=== PATIENT | female | born 1985 | race Two or more races ===

== ENCOUNTER 2021-04-01 09:38 | Inpatient (IN) | payer SELFPAY ==
[~2021-04-01] VITALS: Ht 172.7 cm; Wt 140.9 kg
[2021-04-01] MEDS ORDERED: IV RINGERS,LACTATED 1000ML 1,000 ML IV ONE ×2 (10:00→12:00)
[2021-04-01] MEDS ORDERED: KETOROLAC 15 MG/ML VIAL. IVP ONE (10:00)
[2021-04-01] MEDS ORDERED: ONDANSETRON PF 4 MG/2 ML VIAL. IVP ONE (10:00)
[2021-04-01 10:21] LABS: BILIRUBIN,URINE NEGATIVE (NEG); CLARITY,URINE CLOUDY; COLOR,URINE YELLOW; NITRITE,URINE NEGATIVE (NEG); PROTEIN,URINE >=300 mg/dL (NEG-TRACE); UROBILINOGEN,URINE 0.2 mg/dL (0.2 mg/dL)
[2021-04-01 10:25] LABS: BASO % 0 % (0-3); EOS % 0 % (0-3); HEMATOCRIT 33.9 % (36.0-47.0); HEMOGLOBIN 10.9 g/dL (12.0-15.5); LYMPH # 1.3 x10^3/uL (1.0-4.8); LYMPH % 11 % (24-48); MEAN CORPUSCULAR HEMOGLOBIN 25 pg (25-35); MEAN CORPUSCULAR HGB CONC 32 g/dL (31-37); MEAN CORPUSCULAR VOLUME 77 fL (79-100); MONO # 0.4 x10^3/uL (0.0-1.1); MONO % 4 % (0-9); NEUT # 10.4 x10^3/uL (1.8-7.7); NEUT % 85 % (31-73); PLATELET COUNT 549 x10^3/uL (140-400); RED BLOOD COUNT 4.44 x10^6/uL (3.50-5.40); RED CELL DISTRIBUTION WIDTH 15.4 % (11.5-14.5); WHITE BLOOD COUNT 12.2 x10^3/uL (4.0-11.0)
[2021-04-01 10:34] LABS: CALCIUM 8.4 mg/dL (8.5-10.1); CREATININE 0.6 mg/dL (0.6-1.0); GFR 113.8; POTASSIUM 3.9 mmol/L (3.5-5.1)
[2021-04-01 10:35] LABS: BACTERIA,URINE FEW /HPF (0-FEW)
[2021-04-01 10:40] LABS: ALBUMIN 3.4 g/dL (3.4-5.0); ALBUMIN/GLOBULIN RATIO 0.7 (1.0-1.7); TOTAL BILIRUBIN 0.2 mg/dL (0.2-1.0); TOTAL PROTEIN 8.3 g/dL (6.4-8.2)
--- NOTE | 2021-04-01 11:06 | PHYS DOC ---
Past Medical History Past Surgical History: (RAQUEL ELIZABETH) Smoking Status: Never Smoker Alcohol Use: None (RAQUEL ELIZABETH) General Adult EDM: Chief Complaint: ABDOMINAL PAIN HPI: HPI: Patient is a 36 year old female who presents with epigastric abdominal pain and vomiting that began yesterday. Patient states she had sudden onset of epigastric pain last night that she rates 10/10 nonradiating. This pain was so intense that she vomited. She describes the vomitus as green in color and thin. She denies any exacerbating or remitting factors. Patient's last menstrual period was 4 (RAQUEL ELIZABETH) Review of Systems: Review of Systems: Constitutional: Denies fever, chills or generalized weakness Eyes: Denies change in visual acuity, visual field deficits or discharge HENT: Denies ear pain, nasal congestion or sore throat Respiratory: Denies cough or shortness of breath Cardiovascular: Denies chest pain, palpitations or edema GI: See HPI : Denies dysuria or hematuria Musculoskeletal: Denies back pain or joint pain Integument: Denies rash or other skin lesion Neurologic: Denies headache, focal weakness or sensory changes (RAQUEL ELIZABETH) Heart Score: C/O Chest Pain: No (RAQUEL ELIZABETH) Current Medications: Current Medications Medications (Trade) Dose Ordered Sig/Live Start Time Stop Time Status Last Admin Dose Admin Ketorolac Tromethamine (Toradol 15mg Vial) 15 mg 1X ONCE 04/01/21 10:00 04/01/21 10:01 DC 04/01/21 10:15 15 MG Ondansetron HCl (Zofran) 4 mg 1X ONCE 04/01/21 10:00 04/01/21 10:01 DC 04/01/21 10:15 4 MG Ringer's Solution 1,000 ml @ 1,000 mls/hr 1X ONCE 04/01/21 10:00 04/01/21 10:59 DC 04/01/21 10:16 1,000 MLS/HR (RAQUEL ELIZABETH) Allergies: Allergies: Allergies Coded Allergies Type Severity Reaction Last Updated Verified No Known Drug Allergies 04/01/21 No (RAQUEL ELIZABETH) Physical Exam: PE: Constitutional: Morbidly obese, no acute distress, non-toxic appearance. HENT: Normocephalic, atraumatic, bilateral external ears normal, nose normal. Eyes: EOMI, conjunctiva normal, no discharge. Neck: Normal range of motion, no stridor. Cardiovascular: Heart rate regular rhythm, no murmur. Lungs & Thorax: Bilateral breath sounds clear to auscultation. Abdomen: Bowel sounds normal, soft, epigastric tenderness, no masses, no pulsatile masses. Skin: Warm, dry, no erythema, no rash. Back: No tenderness, no CVA tenderness. Neurologic: Alert and oriented x4, steady and symmetrical upright gait, no focal deficits noted. (RAQUEL ELIZABETH) Current Patient Data: Labs: Laboratory Tests Test 04/01/21 10:00 04/01/21 10:06 04/01/21 10:10 Urine Collection Type Unknown Urine Color Yellow Urine Clarity Cloudy Urine pH 6.0 (<5.0-8.0) Urine Specific Dav[place] >=1.030 (1.000-1.030) Urine Protein >=300 mg/dL (NEG-TRACE) Urine Glucose (UA) 100 mg/dL (NEG) Urine Ketones (Stick) Negative mg/dL (NEG) Urine Blood Moderate (NEG) Urine Nitrite Negative (NEG) Urine Bilirubin Negative (NEG) Urine Urobilinogen Dipstick 0.2 mg/dL (0.2 mg/dL) Urine Leukocyte Esterase Negative (NEG) Urine RBC 11-20 /HPF (0-2) Urine WBC 1-4 /HPF (0-4) Urine Squamous Epithelial Cells Mod /LPF Urine Bacteria Few /HPF (0-FEW) Urine Mucus Mod /LPF POC Urine HCG, Qualitative Hcg negative (Negative) White Blood Count 12.2 x10^3/uL (4.0-11.0) H Red Blood Count 4.44 x10^6/uL (3.50-5.40) Hemoglobin 10.9 g/dL (12.0-15.5) L Hematocrit 33.9 % (36.0-47.0) L Mean Corpuscular Volume 77 fL (79-100) L Mean Corpuscular Hemoglobin 25 pg (25-35) Mean Corpuscular Hemoglobin Concent 32 g/dL (31-37) Red Cell Distribution Width 15.4 % (11.5-14.5) H Platelet Count 549 x10^3/uL (140-400) H Neutrophils (%) (Auto) 85 % (31-73) H Lymphocytes (%) (Auto) 11 % (24-48) L Monocytes (%) (Auto) 4 % (0-9) Eosinophils (%) (Auto) 0 % (0-3) Basophils (%) (Auto) 0 % (0-3) Neutrophils # (Auto) 10.4 x10^3/uL (1.8-7.7) H Lymphocytes # (Auto) 1.3 x10^3/uL (1.0-4.8) Monocytes # (Auto) 0.4 x10^3/uL (0.0-1.1) Eosinophils # (Auto) 0.0 x10^3/uL (0.0-0.7) Basophils # (Auto) 0.0 x10^3/uL (0.0-0.2) Sodium Level 135 mmol/L (136-145) L Potassium Level 3.9 mmol/L (3.5-5.1) Chloride Level 99 mmol/L (98-107) Carbon Dioxide Level 23 mmol/L (21-32) Anion Gap 13 (6-14) Blood Urea Nitrogen 10 mg/dL (7-20) Creatinine 0.6 mg/dL (0.6-1.0) Estimated GFR (Cockcroft-Gault) 113.8 BUN/Creatinine Ratio 17 (6-20) Glucose Level 200 mg/dL (70-99) H Calcium Level 8.4 mg/dL (8.5-10.1) L Total Bilirubin 0.2 mg/dL (0.2-1.0) Aspartate Amino Transferase (AST) 6 U/L (15-37) L Alanine Aminotransferase (ALT) 22 U/L (14-59) Alkaline Phosphatase 97 U/L (46-116) Troponin I High Sensitivity 6 ng/L (4-50) Total Protein 8.3 g/dL (6.4-8.2) H Albumin 3.4 g/dL (3.4-5.0) Albumin/Globulin Ratio 0.7 (1.0-1.7) L Lipase 39 U/L (73-393) L Laboratory Tests 04/01/21 10:10 Laboratory Tests 04/01/21 10:10 Vital Signs: Vital Signs Date Time Temp Pulse Resp B/P (MAP) Pulse Ox O2 Delivery O2 Flow Rate FiO2 04/01/21 09:55 98.3 103 20 205/108 (140) 98 Room Air 98.3 (RAQUEL ELIZABETH) EKG: EKG: EKG Interpreted by Dr. Nance at 1008: Regular rate and rhythm 99 bpm with no ectopic beats. Inverted T waves, Q waves in lead III. QT 360 ms/QTc 468 ms. No STEMI. (RAQUEL ELIZABETH) Radiology/Procedures: Radiology/Procedures: PROCEDURE: CT ABDOMEN PELVIS WO CONTRAST CT ABDOMEN+PELVIS WO History: Hematuria, abdominal pain. Comparison: None. Technique: CT abdomen pelvis without contrast. Findings: Dependent changes in the right lung base. Diffuse hypodensity liver. Distended gallbladder with suggestion of noncalcified 2.3 cm stone at the neck. The pancreas, spleen, and adrenal glands are u nremarkable. There is no nephrolithiasis or hydronephrosis. The bladder, uterus and adnexa are within normal limits. The stomach is decompressed. Small bowel is unremarkable. Normal appendix. Unremarkable colon. No intra-abdominal free air or free fluid. Unenhanced vasculature is unremarkable. There is no adenopathy. Moderate fat-containing umbilical hernia. No acute osseous abnormality. Impression: 1. Distended gallbladder with suggestion of 2.3 cm stone at the gallbladder neck. Correlate for right upper quadrant symptoms. 2. No nephrolithiasis or hydronephrosis. 3. Hepatic steatosis. 4. Moderate fat-containing umbilical hernia. ------ Exposure: One or more of the following individualized dose reduction techniques were utilized for this examination: 1. Automated exposure control 2. Adjustment of the mA and/or kV according to patient size 3. Use of iterative reconstruction technique. Electronically signed by: Maikol Bolton MD (04/01/2021 11:26 AM) [id number] (RAQUEL ELIZABETH) Course & Med Decision Making: Course & Med Decision Making Pertinent Labs and Imaging studies reviewed. (See chart for details) Patient is an obese 36-year-old female who presents with epigastric pain leading to nausea and vomiting. Work-up today will include labs, EKG, urinalysis. Toradol provided for pain control. Work-up reveals elevated white count and hematuria. CT abdomen pelvis plain was ordered to evaluate for possible kidney stone. CT imaging reveals 2.3 cm gallstone with distention. Dr. Rocha (general surgery) paged to discuss surgical removal of gallbladder. Dr. Rocha requests admission and initiation of IV Zosyn, with expected cholecystectomy tomorrow. Dr. Bocanegra (hospitalist) gladly accepts patient for admission. (RAQUEL ELIZABETH) Dragon Disclaimer: Dragon Disclaimer: This electronic medical record was generated, in whole or in part, using a voice recognition dictation system. (RAQUEL ELIZABETH) Departure Departure Impression: Primary Impression: Cholelithiasis with cholecystitis Qualified Codes: K80.00 - Calculus of gallbladder with acute cholecystitis without obstruction Additional Impression: Biliary colic Disposition: ADMITTED INPATIENT Admitting Physician: PEDRO Avelar) (RAQUEL ELIZABETH) Condition: GUARDED Referrals: NO PCP (PCP) Attending Signature Attending Signature I have reviewed the PA/SOLE SPLITTER's note and plan of care. I was available for consultation as needed during the patient's visit in the emergency department. I agree with the clinical impression, plan, and disposition. (RANJIT NANCE DO) RAQUEL ELIZABETH Apr 01, 2021 11:06 RANJIT NANCE DO Apr 02, 2021 09:01
--- NOTE | 2021-04-01 11:28 | RAD ---
CT ABDOMEN+PELVIS WO History: Hematuria, abdominal pain. Comparison: None. Technique: CT abdomen pelvis without contrast. Findings: Dependent changes in the right lung base. Diffuse hypodensity liver. Distended gallbladder with suggestion of noncalcified 2.3 cm stone at the neck. The pancreas, spleen, and adrenal glands are unremarkable. There is no nephrolithiasis or hydro nephrosis. The bladder, uterus and adnexa are within normal limits. The stomach is decompressed. Small bowel is unremarkable. Normal appendix. Unremarkable colon. No int ra-abdominal free air or free fluid. Unenhanced vasculature is unremarkable. There is no adenopathy. Moderate fat-containing umbilical hernia. No acute osseous abnormality. Impression: 1. Distended gallbladder with suggestion of 2.3 cm stone at the gallbladder neck. Correlate for righ t upper quadrant symptoms. 2. No nephrolithiasis or hydronephrosis. 3. Hepatic steatosis. 4. Moderate fat-containing umbilical hernia. ------ Exposure: One or more of the following individualized dose reduction techniques were utilized for thi s examination: 1. Automated exposure control 2. Adjustment of the mA and/or kV according to patient size 3. Use of iterative reconstruction technique. Electronically signed by: Maikol Bolton MD (04/01/2021 11:26 AM) [id number]
[2021-04-01] MEDS ORDERED: MORPHINE SULFATE 2 MG/ML INJ. IVP ONE (12:00)
[2021-04-01] MEDS ORDERED: MORPHINE SULFATE 2 MG/ML INJ. IVP PRN (12:15)
[2021-04-01] MEDS ORDERED: LORazepam 0.5 MG TABLET PO PRN (13:45)
[2021-04-01] MEDS ORDERED: SENNOSIDES 8.6 MG TABLET PO PRN (13:45)
[2021-04-01] MEDS ORDERED: diphenhydrAMINE 50 MG/ML VIAL IVP PRN (13:45)
[2021-04-01] MEDS ORDERED: PIP/TAZO PER PHARMACY MC PRN (13:45)
[2021-04-01] MEDS ORDERED: DOCUSATE SODIUM 100 MG CAPSULE. PO PRN (13:45)
[2021-04-01] MEDS ORDERED: DICYCLOMINE 20 MG/2 ML VIAL. IM PRN (13:45)
[2021-04-01] MEDS ORDERED: DEXTROSE 50% 25 GM / 50ML DISP.SYRIN. IV PRN ×2 (13:45→16:00)
[2021-04-01] MEDS ORDERED: PROCHLORPERAZINE 10 MG/2 ML VIAL. IV PRN (13:45)
[2021-04-01] MEDS ORDERED: diphenhydrAMINE HCL 25 MG CAPSULE PO PRN ×2 (13:45)
[2021-04-01] MEDS ORDERED: ZOLPIDEM 5 MG TABLET. PO PRN (13:45)
[2021-04-01] MEDS ORDERED: ACETAMINOPHEN 325 MG TABLET. PO PRN (13:45)
[2021-04-01] MEDS: ONDANSETRON PF 4 MG/2 ML VIAL. IVP PRN (13:51)
[2021-04-01] MEDS: MORPHINE SULFATE 2 MG/ML INJ. IVP PRN ×2 (13:51→16:54)
[2021-04-01] MEDS: IV NORMAL SALINE 1000ML BAG 1,000 ML IV SCH ×2 (13:56→23:45)
--- NOTE | 2021-04-01 13:56 | RAD ---
EXAM: ULTRASOUND ABDOMEN LIMITED CLINICAL HISTORY: cholelithiasis COMPARISON: None available. TECHNIQUE: Limited ultrasound examination of the right upper quadrant of the abdomen was performed. FINDINGS: The pancreas is mostly obscured by overlying bowel gas.. Liver: 20.7 cm in length. Increased hepatic echogenicity relative to the right kidney consistent wi th hepatic steatosis.. There are no focal liver lesions. Flow seen within the portal veins. Biliary: Cholelithiasis, with stone in the gallbladder neck. Distended gallbladder measures 11 cm in length. Gallbladder wall thickening measuring up to 7 mm. Sonographic Orourke's sign is reported as present. Common bile duct is obscured. Right Kidney: 14.8 cm in bipolar length. Normal renal cortical echotexture and thickness. No focal re nal lesion, shadowing renal calculus or hydronephrosis. Visualized portions of the abdominal aorta and inferior vena cava are unremarkable. There is no free fluid in the subhepatic space. IMPRESSION: 1. Gallbladder hydrops with cholelithiasis and gallbladder wall thickening. Sonographic Orourke's sign is reported as present. Findings are consistent with acute cholecystitis. 2. Common bile duct is obscured. 3. Hepatomegaly and hepatic steatosis. Electronically signed by: Steve Rosas MD (04/01/2021 1:54 PM) [id number]
[2021-04-01 14:45] VITALS: BP 183/95
--- NOTE | 2021-04-01 15:54 | PDOC1 ---
History and Physical Date of Service: DOS: DATE: 04/01/21 TIME: 15:49 Chief Complaint: Chief Complain: Abdominal pain History of Present Illness: HPI: 36-year-old female with morbid obesity who presents with epigastric abdominal pain and nausea vomiting that started yesterday. Patient has never had pain like this before. It was sudden in onset and 10 out of 10 that was nonradiating. Vomitus was bilious in nature. Denies any alleviating or exacerbating factors. Denies fevers, chest pain, diarrhea, dysuria, hematuria or constipation. Past Medical/Surgical History: PMH/PSH: Morbid obesity, in the past Allergies: Allergies: Coded Allergies: No Known Drug Allergies (Unverified , 04/01/21) Family History: Family History: Reviewed with no relevant findings in the chart Social History: Social History: Denies alcohol, tobacco or drug abuse. Current Medications: Current Medications Current Medications Ringer's Solution 1,000 ml @ 1,000 mls/hr 1X ONCE IV Last administered on 04/01/21at 10:16; Start 04/01/21 at 10:00; Stop 04/01/21 at 10:59; Status DC Ondansetron HCl (Zofran) 4 mg 1X ONCE IVP Last administered on 04/01/21at 10:15; Start 04/01/21 at 10:00; Stop 04/01/21 at 10:01; Status DC Ketorolac Tromethamine (Toradol 15mg Vial) 15 mg 1X ONCE IVP Last administered on 04/01/21at 10:15; Start 04/01/21 at 10:00; Stop 04/01/21 at 10:01; Status DC Morphine Sulfate (Morphine Sulfate) 2 mg 1X ONCE IVP Last administered on 04/01/21at 12:00; Start 04/01/21 at 12:00; Stop 04/01/21 at 12:01; Status DC Ringer's Solution 1,000 ml @ 1,000 mls/hr 1X ONCE IV Last administered on 04/01/21at 12:00; Start 04/01/21 at 12:00; Stop 04/01/21 at 12:59; Status DC Morphine Sulfate (Morphine Sulfate) 2 mg PRN Q2HR PRN IVP PAIN; Start 04/01/21 at 12:15; Stop 04/02/21 at 12:14 Dicyclomine HCl (Bentyl) 10 mg PRN QID PRN IM ABDOMINAL CRAMPS Last adm inistered on 04/01/21at 14:45; Start 04/01/21 at 13:45 Sennosides (Senna) 17.2 mg PRN BID PRN PO CONSTIPATION; Start 04/01/21 at 13:45 Docusate Sodium (Colace) 100 mg PRN DAILY PRN PO HARD STOOLS; Start 04/01/21 at 13:45 Ondansetron HCl (Zofran) 4 mg PRN Q6HRS PRN IVP NAUSEA/VOMITING, 1st CHOICE Last administered on 04/01/21at 13:51; Start 04/01/21 at 13:45 Dextrose (Dextrose 50%-Water Syringe) 12.5 gm PRN Q15MIN PRN IV SEE COMMENTS; Start 04/01/21 at 13:45 Acetaminophen (Tylenol) 650 mg PRN Q4HRS PRN PO TEMP OVER 100.4F OR MILD PAIN; Start 04/01/21 at 13:45 Lorazepam (Ativan) 0.5 mg PRN Q6HRS PRN PO ANXIETY / AGITATION; Start 04/01/21 at 13:45 Lorazepam (Ativan Inj) 0.25 mg PRN Q4HRS PRN IV ANXIETY / AGITATION; Start 04/01/21 at 13:45 Prochlorperazine Edisylate (Compazine) 10 mg PRN Q6HRS PRN IV NAUSEA/VOMITING, 2nd CHOICE; Start 04/01/21 at 13:45 Diphenhydramine HCl (Benadryl) 25 mg PRN Q6HRS PRN IVP ITCHING; Start 04/01/21 at 13:45 Diphenhydramine HCl (Benadryl) 25 mg PRN Q6HRS PRN PO ITCHING; Start 04/01/21 at 13:45 Diphenhydramine HCl (Benadryl) 25 mg PRN QHS PRN PO INSOMNIA, 1st CHOICE; Start 04/01/21 at 13:45 Zolpidem Tartrate (Ambien) 2.5 mg PRN QHS PRN PO INSOMNIA, 2nd CHOICE; Start 04/01/21 at 13:45 Sodium Chloride 1,000 ml @ 100 mls/hr Q10H IV Last administered on 04/01/21at 13:56; Start 04/01/21 at 13:45 Enoxaparin Sodium (Lovenox 40mg Syringe) 40 mg Q12H SQ ; Start 04/01/21 at 21:00 Morphine Sulfate (Morphine Sulfate) 1 mg PRN Q1HR PRN IV PAIN; Start 04/01/21 at 13:45 Morphine Sulfate (Morphine Sulfate) 2 mg PRN Q2HR PRN IVP SEVERE PAIN 7-10 Last administered on 04/01/21at 13:51; Start 04/01/21 at 13:45; Stop 04/02/21 at 13:44 Piperacillin Sod/ Tazobactam Sod (Zosyn Per Pharmacy) 1 each PRN DAILY PRN MC SEE COMMENTS; Start 04/01/21 at 13:45 Piperacillin Sod/ Tazobactam Sod 3.375 gm/Sodium Chloride 50 ml @ 100 mls/hr Q6HRS IV ; Start 04/01/21 at 18:00 Heparin Sodium (Porcine) 1000 unit/Sodium Chloride 1,001 ml @ 1,001 mls/hr 1X ONCE IRR ; Start 04/02/21 at 06:00; Stop 04/02/21 at 06:59 Fentanyl Citrate (Fentanyl 2ml Vial) 25 mcg PRN Q5MIN PRN IVP MILD PAIN 1-3; Start 04/02/21 at 06:00; Stop 04/03/21 at 05:59 Fentanyl Citrate (Fentanyl 2ml Vial) 50 mcg PRN Q5MIN PRN IVP MODERATE PAIN 4- 6; Start 04/02/21 at 06:00; Stop 04/03/21 at 05:59 Morphine Sulfate (Morphine Sulfate) 1 mg PRN Q10MIN PRN IVP SEVERE PAIN 7-10; Start 04/02/21 at 06:00; Stop 04/03/21 at 05:59 Ringer's Solution 1,000 ml @ 30 mls/hr Q24H IV ; Start 04/02/21 at 06:00; Stop 04/02/21 at 17:59 Hydromorphone HCl (Dilaudid) 0.5 mg PRN Q10MIN PRN IVP SEVERE PAIN 7-10, 2nd CHOICE; Start 04/02/21 at 06:00; Stop 04/03/21 at 05:59 Prochlorperazine Edisylate (Compazine) 5 mg PACU PRN PRN IVP NAUSEA, MRX1; Start 04/02/21 at 06:00; Stop 04/03/21 at 05:59 ROS: Review of Systems Review of System REVIEW OF SYSTEMS: GENERAL: Denies weakness SKIN: No bruising, hair changes or rashes. EYES: No blurred, double or loss of vision. NOSE AND THROAT: No history of nosebleeds, hoarseness or sore throat. HEART: No history of palpitations, chest pain or shortness of breath on exertion. LUNGS: Denies cough, hemoptysis, wheezing or shortness of breath. GASTROINTESTINAL: Positive for abdominal pain GENITOURINARY: No history of frequency, urgency, hesitancy or nocturia. NEUROLOGIC: Denies history of numbness, tingling, or tremor. PSYCHIATRIC: No history of panic, anxiety or depression. ENDOCRINE: No history of heat or cold intolerance, polyuria or polydipsia. EXTREMITIES: Denies joint pain, pain on walking or stiffness. Physical Exam: Vital Signs: Vital Signs Date Time Temp Pulse Resp B/P (MAP) Pulse Ox O2 Delivery O2 Flow Rate FiO2 04/01/21 14:45 98.3 94 20 183/95 (124) 99 Room Air 98.3 Physcial Exam: General: Well developed, well nourished, no acute distress, well appearing, obese HEENT: Pupils equally round and reactive to light, EOMI, no discharge, normal conjunctiva Neck: Supple, no nuchal rigidity, no JVD, trachea midline, no tenderness Cardiac: RRR, no murmurs, no gallops, no rubs Chest/Lungs: CTAB, no wheeze, no rhonchi, no crackles Abdomen: soft, non-distended, no guarding, no peritoneal signs, epigastric and right upper quadrant tenderness Back: No tenderness Extremities: no edema, pulses intact, non-tender,capillary refill <3 sec bilateral upper and lower extremities, Neuro: Alert and oriented x 4, no focal deficits, normal speech Labs: Labs: Laboratory Tests Test 04/01/21 10:00 04/01/21 10:06 04/01/21 10:10 Urine Collection Type Unknown Urine Color Yellow Urine Clarity Cloudy Urine pH 6.0 (<5.0-8.0) Urine Specific [place] >=1.030 (1.000-1.030) Urine Protein >=300 mg/dL (NEG-TRACE) Urine Glucose (UA) 100 mg/dL (NEG) Urine Ketones (Stick) Negative mg/dL (NEG) Urine Blood Moderate (NEG) Urine Nitrite Negative (NEG) Urine Bilirubin Negative (NEG) Urine Urobilinogen Dipstick 0.2 mg/dL (0.2 mg/dL) Urine Leukocyte Esterase Negative (NEG) Urine RBC 11-20 /HPF (0-2) Urine WBC 1-4 /HPF (0-4) Urine Squamous Epithelial Cells Mod /LPF Urine Bacteria Few /HPF (0-FEW) Urine Mucus Mod /LPF Bedside Urine HCG, Qualitative Hcg negative (Negative) White Blood Count 12.2 x10^3/uL (4.0-11.0) Red Blood Count 4.44 x10^6/uL (3.50-5.40) Hemoglobin 10.9 g/dL (12.0-15.5) Hematocrit 33.9 % (36.0-47.0) Mean Corpuscular Volume 77 fL (79-100) Mean Corpuscular Hemoglobin 25 pg (25-35) Mean Corpuscular Hemoglobin Concent 32 g/dL (31-37) Red Cell Distribution Width 15.4 % (11.5-14.5) Platelet Count 549 x10^3/uL (140-400) Neutrophils (%) (Auto) 85 % (31-73) Lymphocytes (%) (Auto) 11 % (24-48) Monocytes (%) (Auto) 4 % (0-9) Eosinophils (%) (Auto) 0 % (0-3) Basophils (%) (Auto) 0 % (0-3) Neutrophils # (Auto) 10.4 x10^3/uL (1.8-7.7) Lymphocytes # (Auto) 1.3 x10^3/uL (1.0-4.8) Monocytes # (Auto) 0.4 x10^3/uL (0.0-1.1) Eosinophils # (Auto) 0.0 x10^3/uL (0.0-0.7) Basophils # (Auto) 0.0 x10^3/uL (0.0-0.2) Sodium Level 135 mmol/L (136-145) Potassium Level 3.9 mmol/L (3.5-5.1) Chloride Level 99 mmol/L (98-107) Carbon Dioxide Level 23 mmol/L (21-32) Anion Gap 13 (6-14) Blood Urea Nitrogen 10 mg/dL (7-20) Creatinine 0.6 mg/dL (0.6-1.0) Estimated GFR (Cockcroft-Gault) 113.8 BUN/Creatinine Ratio 17 (6-20) Glucose Level 200 mg/dL (70-99) Calcium Level 8.4 mg/dL (8.5-10.1) Total Bilirubin 0.2 mg/dL (0.2-1.0) Aspartate Amino Transf (AST/SGOT) 6 U/L (15-37) Alanine Aminotransferase (ALT/SGPT) 22 U/L (14-59) Alkaline Phosphatase 97 U/L (46-116) Troponin I High Sensitivity 6 ng/L (4-50) Total Protein 8.3 g/dL (6.4-8.2) Albumin 3.4 g/dL (3.4-5.0) Albumin/Globulin Ratio 0.7 (1.0-1.7) Lipase 39 U/L (73-393) Laboratory Tests Test 04/01/21 10:00 04/01/21 10:06 04/01/21 10:10 Urine Collection Type Unknown Urine Color Yellow Urine Clarity Cloudy Urine pH 6.0 (<5.0-8.0) Urine Specific [place] >=1.030 (1.000-1.030) Urine Protein >=300 mg/dL (NEG-TRACE) Urine Glucose (UA) 100 mg/dL (NEG) Urine Ketones (Stick) Negative mg/dL (NEG) Urine Blood Moderate (NEG) Urine Nitrite Negative (NEG) Urine Bilirubin Negative (NEG) Urine Urobilinogen Dipstick 0.2 mg/dL (0.2 mg/dL) Urine Leukocyte Esterase Negative (NEG) Urine RBC 11-20 /HPF (0-2) Urine WBC 1-4 /HPF (0-4) Urine Squamous Epithelial Cells Mod /LPF Urine Bacteria Few /HPF (0-FEW) Urine Mucus Mod /LPF Bedside Urine HCG, Qualitative Hcg negative (Negative) White Blood Count 12.2 x10^3/uL (4.0-11.0) Red Blood Count 4.44 x10^6/uL (3.50-5.40) Hemoglobin 10.9 g/dL (12.0-15.5) Hematocrit 33.9 % (36.0-47.0) Mean Corpuscular Volume 77 fL (79-100) Mean Corpuscular Hemoglobin 25 pg (25-35) Mean Corpuscular Hemoglobin Concent 32 g/dL (31-37) Red Cell Distribution Width 15.4 % (11.5-14.5) Platelet Count 549 x10^3/uL (140-400) Neutrophils (%) (Auto) 85 % (31-73) Lymphocytes (%) (Auto) 11 % (24-48) Monocytes (%) (Auto) 4 % (0-9) Eosinophils (%) (Auto) 0 % (0-3) Basophils (%) (Auto) 0 % (0-3) Neutrophils # (Auto) 10.4 x10^3/uL (1.8-7.7) Lymphocytes # (Auto) 1.3 x10^3/uL (1.0-4.8) Monocytes # (Auto) 0.4 x10^3/uL (0.0-1.1) Eosinophils # (Auto) 0.0 x10^3/uL (0.0-0.7) Basophils # (Auto) 0.0 x10^3/uL (0.0-0.2) Sodium Level 135 mmol/L (136-145) Potassium Level 3.9 mmol/L (3.5-5.1) Chloride Level 99 mmol/L (98-107) Carbon Dioxide Level 23 mmol/L (21-32) Anion Gap 13 (6-14) Blood Urea Nitrogen 10 mg/dL (7-20) Creatinine 0.6 mg/dL (0.6-1.0) Estimated GFR (Cockcroft-Gault) 113.8 BUN/Creatinine Ratio 17 (6-20) Glucose Level 200 mg/dL (70-99) Calcium Level 8.4 mg/dL (8.5-10.1) Total Bilirubin 0.2 mg/dL (0.2-1.0) Aspartate Amino Transf (AST/SGOT) 6 U/L (15-37) Alanine Aminotransferase (ALT/SGPT) 22 U/L (14-59) Alkaline Phosphatase 97 U/L (46-116) Troponin I High Sensitivity 6 ng/L (4-50) Total Protein 8.3 g/dL (6.4-8.2) Albumin 3.4 g/dL (3.4-5.0) Albumin/Globulin Ratio 0.7 (1.0-1.7) Lipase 39 U/L (73-393) Images: Images PROCEDURE: CT ABDOMEN PELVIS WO CONTRAST CT ABDOMEN+PELVIS WO History: Hematuria, abdominal pain. Comparison: None. Technique: CT abdomen pelvis without contrast. Findings: Dependent changes in the right lung base. Diffuse hypodensity liver. Distended gallbladder with suggestion of noncalcified 2.3 cm stone at the neck. The pancreas, spleen, and adrenal glands are unremarkable. There is no nephrolithiasis or hydronephrosis. The bladder, uterus and adnexa are within normal limits. The stomach is decompressed. Small bowel is unremarkable. Normal appendix. Unre markable colon. No intra-abdominal free air or free fluid. Unenhanced vasculature is unremarkable. There is no adenopathy. Moderate fat-containing umbilical hernia. No acute osseous abnormality. Impression: 1. Distended gallbladder with suggestion of 2.3 cm stone at the gallbladder neck. Correlate for right upper quadrant symptoms. 2. No nephrolithiasis or hydronephrosis. 3. Hepatic steatosis. 4. Moderate fat-containing umbilical hernia. PROCEDURE: ABDOMEN LTD EXAM: ULTRASOUND ABDOMEN LIMITED CLINICAL HISTORY: cholelithiasis COMPARISON: None available. TECHNIQUE: Limited ultrasound examination of the right upper quadrant of the abdomen was performed. FINDINGS: The pancreas is mostly obscured by overlying bowel gas.. Liver: 20.7 cm in length. Increased hepatic echogenicity relative to the right kidney consistent with hepatic steatosis.. There are no focal liver lesions. Flow seen within the portal veins. Biliary: Cholelithiasis, with stone in the gallbladder neck. Distended gallbladder measures 11 cm in length. Gallbladder wall thickening measuring up to 7 mm. Sonographic Orourke's sign is reported as present. Common bile duct is obscured. Right Kidney: 14.8 cm in bipolar length. Normal renal cortical echotexture and thickness. No focal renal lesion, shadowing renal calculus or hydronephrosis. Visualized portions of the abdominal aorta and inferior vena cava are unremarkable. There is no free fluid in the subhepatic space. IMPRESSION: 1. Gallbladder hydrops with cholelithiasis and gallbladder wall thickening. Sonographic Orourke's sign is reported as present. Findings are consistent with acute cholecystitis. 2. Common bile duct is obscured. 3. Hepatomegaly and hepatic steatosis. Assessment/Plan Assessment/Plan Acute abdominal pain secondary to acute cholecystitis Microcytic anemia likely due to KEYSHA Mild hyponatremia likely related to volume depletion Hyperglycemia without a history of diabetes Admit to hospitalist service for further management General surgery consult Continue IV fluids Keep n.p.o. PO and IV pain control R ISS and Accu-Cheks Pending hemoglobin A1c Lovenox and SCD for DVT prophylaxis N.p.o. for now, ADA diet after surgery CODE STATUS full Discussed with RN and SW Disposition inpatient management as above DPOA: Justifications for Admission Other Justification Acute cholecystitis KYLAH TEIXEIRA MD Apr 01, 2021 15:54
[2021-04-01] MEDS: PIPERACILLIN/TAZOBACTAM 3.375 GM in IV NORMAL SALINE 50ML 50 ML IV SCH (16:53)
[2021-04-01] MEDS: INSULIN LISPRO 300 UNITS/3 ML VIAL. SQ SCH (17:00)
[2021-04-01] MEDS ORDERED: fentaNYL PF VIAL 100 MCG/2 ML VIAL IVP PRN (17:45)
[2021-04-01 19:35] VITALS: BP 200/106
[2021-04-01] MEDS: ENOXAPARIN 40 MG/0.4 ML SYRINGE. SQ SCH (23:01)
[2021-04-01 23:20] VITALS: BP 172/83
[2021-04-02] VITALS (11 sets, daily range): BP systolic 158–188; BP diastolic 88–113
[2021-04-02] MEDS: PIPERACILLIN/TAZOBACTAM 3.375 GM in IV NORMAL SALINE 50ML 50 ML IV SCH ×4 (00:33→19:19)
[2021-04-02] MEDS ORDERED: HEPARIN 1,000 UNIT in IV NORMAL SALINE 1,000 ML for SURG PERIOP IRR ONE (06:00)
[2021-04-02] MEDS ORDERED: IV RINGERS,LACTATED 1000ML 1,000 ML IV SCH (06:00)
[2021-04-02] MEDS ORDERED: HYDROmorphone 2 MG/ML INJ. IVP PRN (06:00)
[2021-04-02] MEDS ORDERED: MORPHINE SULFATE 2 MG/ML INJ. IVP PRN (06:00)
[2021-04-02] MEDS ORDERED: fentaNYL PF VIAL 100 MCG/2 ML VIAL IVP PRN (06:00)
[2021-04-02] MEDS ORDERED: PROCHLORPERAZINE 10 MG/2 ML VIAL. IVP PRN (06:00)
[2021-04-02 06:57] LABS: BASO % 0 % (0-3); EOS % 1 % (0-3); HEMATOCRIT 30.8 % (36.0-47.0); HEMOGLOBIN 9.9 g/dL (12.0-15.5); LYMPH # 1.9 x10^3/uL (1.0-4.8); LYMPH % 18 % (24-48); MEAN CORPUSCULAR HEMOGLOBIN 25 pg (25-35); MEAN CORPUSCULAR HGB CONC 32 g/dL (31-37); MEAN CORPUSCULAR VOLUME 77 fL (79-100); MONO # 0.8 x10^3/uL (0.0-1.1); MONO % 8 % (0-9); NEUT # 7.7 x10^3/uL (1.8-7.7); NEUT % 73 % (31-73); PLATELET COUNT 490 x10^3/uL (140-400); RED BLOOD COUNT 4.01 x10^6/uL (3.50-5.40); RED CELL DISTRIBUTION WIDTH 15.2 % (11.5-14.5); WHITE BLOOD COUNT 10.5 x10^3/uL (4.0-11.0)
[2021-04-02 07:21] LABS: CALCIUM 7.9 mg/dL (8.5-10.1); CREATININE 0.6 mg/dL (0.6-1.0); GFR 113.8; POTASSIUM 3.6 mmol/L (3.5-5.1)
[2021-04-02] MEDS: INSULIN LISPRO 300 UNITS/3 ML VIAL. SQ SCH ×3 (08:00→17:00)
[2021-04-02] MEDS: ENOXAPARIN 40 MG/0.4 ML SYRINGE. SQ SCH ×2 (08:08→21:08)
--- NOTE | 2021-04-02 08:08 | NUR ---
Michelle held d/t scheduled surgery
--- NOTE | 2021-04-02 08:14 | PDOC ---
[employer] PROGRESS NOTE Date of Service DOS: DATE: 04/02/21 TIME: 08:11 Chief Complaint Chief Complaint Acute abdominal pain secondary to acute cholecystitis Microcytic anemia likely due to KEYSHA Mild hyponatremia likely related to volume depletion Hyperglycemia without a history of diabetes History of Present Illness History of Present Illness 04/02/21 Patient seen and examined at bedside, per diem interpreter used Patients BP has been elevated, she currently takes no BP home meds so discussed starting Norvasc Will have surgery this afternoon Chart reviewed Discussed w RN Vitals/I&O Vitals/I&O: Vital Signs Date Time Temp Pulse Resp B/P (MAP) Pulse Ox O2 Delivery O2 Flow Rate FiO2 04/02/21 07:47 Room Air 04/02/21 03:17 99.2 94 18 186/109 (134) 97 99.2 I & O 04/01/21 04/01/21 04/02/21 15:00 23:00 07:00 Intake Total 0 ml Balance 0 ml Labs Labs: Laboratory Tests Test 04/01/21 10:00 04/01/21 10:06 04/01/21 10:10 04/01/21 16:26 Urine Collection Type Unknown Urine Color Yellow Urine Clarity Cloudy Urine pH 6.0 (<5.0-8.0) Urine Specific [place] >=1.030 (1.000-1.030) Urine Protein >=300 mg/dL (NEG-TRACE) Urine Glucose (UA) 100 mg/dL (NEG) Urine Ketones (Stick) Negative mg/dL (NEG) Urine Blood Moderate (NEG) Urine Nitrite Negative (NEG) Urine Bilirubin Negative (NEG) Urine Urobilinogen Dipstick 0.2 mg/dL (0.2 mg/dL) Urine Leukocyte Esterase Negative (NEG) Urine RBC 11-20 /HPF (0-2) Urine WBC 1-4 /HPF (0-4) Urine Squamous Epithelial Cells Mod /LPF Urine Bacteria Few /HPF (0-FEW) Urine Mucus Mod /LPF Bedside Urine HCG, Qualitative Hcg negative (Negative) White Blood Count 12.2 x10^3/uL (4.0-11.0) Red Blood Count 4.44 x10^6/uL (3.50-5.40) Hemoglobin 10.9 g/dL (12.0-15.5) Hematocrit 33.9 % (36.0-47.0) Mean Corpuscular Volume 77 fL (79-100) Mean Corpuscular Hemoglobin 25 pg (25-35) Mean Corpuscular Hemoglobin Concent 32 g/dL (31-37) Red Cell Distribution Width 15.4 % (11.5-14.5) Platelet Count 549 x10^3/uL (140-400) Neutrophils (%) (Auto) 85 % (31-73) Lymphocytes (%) (Auto) 11 % (24-48) Monocytes (%) (Auto) 4 % (0-9) Eosinophils (%) (Auto) 0 % (0-3) Basophils (%) (Auto) 0 % (0-3) Neutrophils # (Auto) 10.4 x10^3/uL (1.8-7.7) Lymphocytes # (Auto) 1.3 x10^3/uL (1.0-4.8) Monocytes # (Auto) 0.4 x10^3/uL (0.0-1.1) Eosinophils # (Auto) 0.0 x10^3/uL (0.0-0.7) Basophils # (Auto) 0.0 x10^3/uL (0.0-0.2) Sodium Level 135 mmol/L (136-145) Potassium Level 3.9 mmol/L (3.5-5.1) Chloride Level 99 mmol/L (98-107) Carbon Dioxide Level 23 mmol/L (21-32) Anion Gap 13 (6-14) Blood Urea Nitrogen 10 mg/dL (7-20) Creatinine 0.6 mg/dL (0.6-1.0) Estimated GFR (Cockcroft-Gault) 113.8 BUN/Creatinine Ratio 17 (6-20) Glucose Level 200 mg/dL (70-99) Calcium Level 8.4 mg/dL (8.5-10.1) Total Bilirubin 0.2 mg/dL (0.2-1.0) Aspartate Amino Transf (AST/SGOT) 6 U/L (15-37) Alanine Aminotransferase (ALT/SGPT) 22 U/L (14-59) Alkaline Phosphatase 97 U/L (46-116) Troponin I High Sensitivity 6 ng/L (4-50) Total Protein 8.3 g/dL (6.4-8.2) Albumin 3.4 g/dL (3.4-5.0) Albumin/Globulin Ratio 0.7 (1.0-1.7) Lipase 39 U/L (73-393) Coronavirus (COVID-19)(PCR) Not detected (NOT DETECTD) SARS-CoV-2 Antigen (Rapid) Negative (NEGATIVE) Test 04/01/21 17:16 04/02/21 06:00 04/02/21 07:55 Glucose (Fingerstick) 151 mg/dL (70-99) 162 mg/dL (70-99) White Blood Count 10.5 x10^3/uL (4.0-11.0) Red Blood Count 4.01 x10^6/uL (3.50-5.40) Hemoglobin 9.9 g/dL (12.0-15.5) Hematocrit 30.8 % (36.0-47.0) Mean Corpuscular Volume 77 fL (79-100) Mean Corpuscular Hemoglobin 25 pg (25-35) Mean Corpuscular Hemoglobin Concent 32 g/dL (31-37) Red Cell Distribution Width 15.2 % (11.5-14.5) Platelet Count 490 x10^3/uL (140-400) Neutrophils (%) (Auto) 73 % (31-73) Lymphocytes (%) (Auto) 18 % (24-48) Monocytes (%) (Auto) 8 % (0-9) Eosinophils (%) (Auto) 1 % (0-3) Basophils (%) (Auto) 0 % (0-3) Neutrophils # (Auto) 7.7 x10^3/uL (1.8-7.7) Lymphocytes # (Auto) 1.9 x10^3/uL (1.0-4.8) Monocytes # (Auto) 0.8 x10^3/uL (0.0-1.1) Eosinophils # (Auto) 0.0 x10^3/uL (0.0-0.7) Basophils # (Auto) 0.0 x10^3/uL (0.0-0.2) Sodium Level 137 mmol/L (136-145) Potassium Level 3.6 mmol/L (3.5-5.1) Chloride Level 100 mmol/L (98-107) Carbon Dioxide Level 26 mmol/L (21-32) Anion Gap 11 (6-14) Blood Urea Nitrogen 5 mg/dL (7-20) Creatinine 0.6 mg/dL (0.6-1.0) Estimated GFR (Cockcroft-Gault) 113.8 Glucose Level 173 mg/dL (70-99) Calcium Level 7.9 mg/dL (8.5-10.1) Phosphorus Level 3.0 mg/dL (2.6-4.7) Magnesium Level 2.0 mg/dL (1.8-2.4) Assessment and Plan Assessmemt and Plan Problems Medical Problems: (1) Biliary colic Status: Acute (2) Cholelithiasis with cholecystitis Status: Acute Assessment/Plan Acute abdominal pain secondary to acute cholecystitis Microcytic anemia likely due to KEYSHA Mild hyponatremia likely related to volume depletion Hyperglycemia without a history of diabetes Plan Surgery later today Continue IV fluids Start Norvasc 10 mg/day Keep n.p.o. PO and IV pain control R ISS and Accu-Cheks Pending hemoglobin A1c Lovenox and SCD for DVT prophylaxis N.p.o. for now, ADA diet after surgery CODE STATUS full Comment Review of Relevant I have reviewed the following items ana (where applicable) has been applied. Medications: Current Medications Medications (Trade) Dose Ordered Sig/Live Route PRN Reason Start Time Stop Time Status Last Admin Dose Admin Ringer's Solution 1,000 ml @ 1,000 mls/hr 1X ONCE IV 04/01/21 10:00 04/01/21 10:59 DC 04/01/21 10:16 Ondansetron HCl (Zofran) 4 mg 1X ONCE IVP 04/01/21 10:00 04/01/21 10:01 DC 04/01/21 10:15 Ketorolac Tromethamine (Toradol 15mg Vial) 15 mg 1X ONCE IVP 04/01/21 10:00 04/01/21 10:01 DC 04/01/21 10:15 Morphine Sulfate (Morphine Sulfate) 2 mg 1X ONCE IVP 04/01/21 12:00 04/01/21 12:01 DC 04/01/21 12:00 Ringer's Solution 1,000 ml @ 1,000 mls/hr 1X ONCE IV 04/01/21 12:00 04/01/21 12:59 DC 04/01/21 12:00 Morphine Sulfate (Morphine Sulfate) 2 mg PRN Q2HR PRN IVP PAIN 04/01/21 12:15 04/02/21 12:14 04/01/21 20:41 Dicyclomine HCl (Bentyl) 10 mg PRN QID PRN IM ABDOMINAL CRAMPS 04/01/21 13:45 04/01/21 14:45 Ondansetron HCl (Zofran) 4 mg PRN Q6HRS PRN IVP NAUSEA/VOMITING, 1st CHOICE 04/01/21 13:45 04/01/21 13:51 Prochlorperazine Edisylate (Compazine) 10 mg PRN Q6HRS PRN IV NAUSEA/VOMITING, 2nd CHOICE 04/01/21 13:45 04/01/21 16:54 Diphenhydramine HCl (Benadryl) 25 mg PRN Q6HRS PRN IVP ITCHING 04/01/21 13:45 04/01/21 23:01 Sodium Chloride 1,000 ml @ 100 mls/hr Q10H IV 04/01/21 13:45 04/01/21 23:45 Enoxaparin Sodium (Lovenox 40mg Syringe) 40 mg Q12H SQ 04/01/21 21:00 04/01/21 23:01 Morphine Sulfate (Morphine Sulfate) 2 mg PRN Q2HR PRN IVP SEVERE PAIN 7-10 04/01/21 13:45 04/02/21 13:44 04/01/21 16:54 Piperacillin Sod/ Tazobactam Sod 3.375 gm/Sodium Chloride 50 ml @ 100 mls/hr Q6HRS IV 04/01/21 18:00 04/02/21 06:41 Fentanyl Citrate (Fentanyl 2ml Vial) 75 mcg PRN Q2HR PRN IVP SEVERE PAIN 04/01/21 17:45 04/01/21 18:00 Justifications for Admission Other Justification Acute cholecystitis ROSA MARSHALL III DO Apr 02, 2021 08:14
[2021-04-02] MEDS: IV NORMAL SALINE 1000ML BAG 1,000 ML IV SCH ×3 (09:59→19:45)
--- NOTE | 2021-04-02 10:17 | NUR ---
SW following. Discussed with RN, pt from home, room air, NPO, COVID-19 negative. Surgery today. Med Assist following for self pay status. SW will continue to follow.
[2021-04-02] MEDS ORDERED: ROCURONIUM 50 MG/5 ML VIAL. ONE ×2 (11:40→15:52)
[2021-04-02] MEDS ORDERED: NEOSTIGMINE METHYLSULFATE 5 MG/5 ML SYRINGE. ONE (11:43)
[2021-04-02] MEDS ORDERED: GLYCOPYRROLATE 1 MG/5 ML VIAL. ONE (11:43)
[2021-04-02] MEDS ORDERED: FAMOTIDINE 20 MG/2 ML VIAL ONE (11:46)
[2021-04-02] MEDS ORDERED: LIDOCAINE 2% PF 5 ML VIAL. ONE (11:47)
[2021-04-02] MEDS ORDERED: KETOROLAC 30 MG/ML VIAL. ONE (11:47)
[2021-04-02] MEDS ORDERED: DEXAMETHASONE SOD PHOS 4 MG/ML VIAL ONE (11:47)
[2021-04-02] MEDS ORDERED: PROPOFOL 10 MG/ML (20ML) VIAL. IV ONE ×2 (11:47→16:48)
--- NOTE | 2021-04-02 12:40 | PDOC2 ---
CONSULT Date of Consult Date of Consult DATE: 04/02/21 TIME: 12:36 Reason for Consult Reason for Consult: Calculous cholecystitis Referring Physician Referring Physician: Dr. Bocanegra Identification/Chief Complaint Chief Complaint RUQ abd pain, N/V Source Source: Chart review, Patient History of Present Illness Reason for Visit: 36 yo F with c/o acute onset RUQ abd pain with associated N/V. No previous episodes. Does feels better today, but still with pain. Past Medical History Cardiovascular: Other (obesity) Past Surgical History Past Surgical History: Family History Family History: No Significant Social History No ALCOHOL: none Current Problem List Problem List Problems Medical Problems: (1) Biliary colic Status: Acute (2) Cholelithiasis with cholecystitis Status: Acute Current Medications Current Medications Current Medications Ringer's Solution 1,000 ml @ 1,000 mls/hr 1X ONCE IV Last administered on 04/01/21at 10:16; Start 04/01/21 at 10:00; Stop 04/01/21 at 10:59; Status DC Ondansetron HCl (Zofran) 4 mg 1X ONCE IVP Last administered on 04/01/21at 10:15; Start 04/01/21 at 10:00; Stop 04/01/21 at 10:01; Status DC Ketorolac Tromethamine (Toradol 15mg Vial) 15 mg 1X ONCE IVP Last administered on 04/01/21at 10:15; Start 04/01/21 at 10:00; Stop 04/01/21 at 10:01; Status DC Morphine Sulfate (Morphine Sulfate) 2 mg 1X ONCE IVP Last administered on 04/01/21at 12:00; Start 04/01/21 at 12:00; Stop 04/01/21 at 12:01; Status DC Ringer's Solution 1,000 ml @ 1,000 mls/hr 1X ONCE IV Last administered on 04/01/21at 12:00; Start 04/01/21 at 12:00; Stop 04/01/21 at 12:59; Status DC Morphine Sulfate (Morphine Sulfate) 2 mg PRN Q2HR PRN IVP PAIN Last administered on 04/01/21at 20:41; Start 04/01/21 at 12:15; Stop 04/02/21 at 12:14; Status DC Dicyclomine HCl (Bentyl) 10 mg PRN QID PRN IM ABDOMINAL CRAMPS Last administered on 04/01/21at 14:45; Start 04/01/21 at 13:45 Sennosides (Senna) 17.2 mg PRN BID PRN PO CONSTIPATION; Start 04/01/21 at 13:45 Docusate Sodium (Colace) 100 mg PRN DAILY PRN PO HARD STOOLS; Start 04/01/21 at 13:45 Ondansetron HCl (Zofran) 4 mg PRN Q6HRS PRN IVP NAUSEA/VOMITING, 1st CHOICE Last administered on 04/01/21at 13:51; Start 04/01/21 at 13:45 Dextrose (Dextrose 50%-Water Syringe) 12.5 gm PRN Q15MIN PRN IV SEE COMMENTS; Start 04/01/21 at 13:45 Acetaminophen (Tylenol) 650 mg PRN Q4HRS PRN PO TEMP OVER 100.4F OR MILD PAIN; Start 04/01/21 at 13:45 Lorazepam (Ativan) 0.5 mg PRN Q6HRS PRN PO ANXIETY / AGITATION; Start 04/01/21 at 13:45 Lorazepam (Ativan Inj) 0.25 mg PRN Q4HRS PRN IV ANXIETY / AGITATION; Start 04/01/21 at 13:45 Prochlorperazine Edisylate (Compazine) 10 mg PRN Q6HRS PRN IV NAUSEA/VOMITING, 2nd CHOICE Last administered on 04/01/21at 16:54; Start 04/01/21 at 13:45 Diphenhydramine HCl (Benadryl) 25 mg PRN Q6HRS PRN IVP ITCHING Last administered on 04/01/21at 23:01; Start 04/01/21 at 13:45 Diphenhydramine HCl (Benadryl) 25 mg PRN Q6HRS PRN PO ITCHING; Start 04/01/21 at 13:45 Diphenhydramine HCl (Benadryl) 25 mg PRN QHS PRN PO INSOMNIA, 1st CHOICE; Start 04/01/21 at 13:45 Zolpidem Tartrate (Ambien) 2.5 mg PRN QHS PRN PO INSOMNIA, 2nd CHOICE; Start at 13:45 Sodium Chloride 1,000 ml @ 100 mls/hr Q10H IV Last administered on 04/02/21at 09:59; Start 04/01/21 at 13:45 Enoxaparin Sodium (Lovenox 40mg Syringe) 40 mg Q12H SQ Last administered on 04/01/21at 23:01; Start 04/01/21 at 21:00 Morphine Sulfate (Morphine Sulfate) 1 mg PRN Q1HR PRN IV PAIN; Start 04/01/21 at 13:45 Morphine Sulfate (Morphine Sulfate) 2 mg PRN Q2HR PRN IVP SEVERE PAIN 7-10 Last administered on 04/01/21at 16:54; Start 04/01/21 at 13:45; Stop 04/02/21 at 13:44 Piperacillin Sod/ Tazobactam Sod (Zosyn Per Pharmacy) 1 each PRN DAILY PRN MC SEE COMMENTS; Start 04/01/21 at 13:45 Piperacillin Sod/ Tazobactam Sod 3.375 gm/Sodium Chloride 50 ml @ 100 mls/hr Q6HRS IV Last administered on 04/02/21at 12:06; Start 04/01/21 at 18:00 Heparin Sodium (Porcine) 1000 unit/Sodium Chloride 1,001 ml @ 1,001 mls/hr 1X ONCE IRR ; Start 04/02/21 at 06:00; Stop 04/02/21 at 06:59; Status DC Fentanyl Citrate (Fentanyl 2ml Vial) 25 mcg PRN Q5MIN PRN IVP MILD PAIN 1-3; Start 04/02/21 at 06:00; Stop 04/03/21 at 05:59 Fentanyl Citrate (Fentanyl 2ml Vial) 50 mcg PRN Q5MIN PRN IVP MODERATE PAIN 4- 6; Start 04/02/21 at 06:00; Stop 04/03/21 at 05:59 Morphine Sulfate (Morphine Sulfate) 1 mg PRN Q10MIN PRN IVP SEVERE PAIN 7-10; Start 04/02/21 at 06:00; Stop 04/03/21 at 05:59 Ringer's Solution 1,000 ml @ 30 mls/hr Q24H IV ; Start 04/02/21 at 06:00; Stop 04/02/21 at 17:59 Hydromorphone HCl (Dilaudid) 0.5 mg PRN Q10MIN PRN IVP SEVERE PAIN 7-10, 2nd CHOICE; Start 04/02/21 at 06:00; Stop 04/03/21 at 05:59 Prochlorperazine Edisylate (Compazine) 5 mg PACU PRN PRN IVP NAUSEA, MRX1; Start 04/02/21 at 06:00; Stop 04/03/21 at 05:59 Insulin Human Lispro (HumaLOG) 0-5 UNITS TIDWMEALS SQ ; Start 04/01/21 at 17:00 Dextrose (Dextrose 50%-Water Syringe) 12.5 gm PRN Q15MIN PRN IV SEE COMMENTS; Start 04/01/21 at 16:00 Fentanyl Citrate (Fentanyl 2ml Vial) 75 mcg PRN Q2HR PRN IVP SEVERE PAIN Last administered on 04/01/21at 18:00; Start 04/01/21 at 17:45 Amlodipine Besylate (Norvasc) 10 mg DAILY PO Last administered on 04/02/21at 0 9:57; Start 04/02/21 at 09:00 Rocuronium Gem (Zemuron) 50 mg STK-MED ONCE .ROUTE ; Start 04/02/21 at 11:40; Stop 04/02/21 at 11:40; Status DC Neostigmine Gem (Neostigmine Methylsulfate) 5 mg STK-MED ONCE .ROUTE ; Start 04/02/21 at 11:43; Stop 04/02/21 at 11:43; Status DC Glycopyrrolate (Robinul) 1 mg STK-MED ONCE .ROUTE ; Start 04/02/21 at 11:43; Stop 04/02/21 at 11:44; Status DC Famotidine (Pepcid Vial) 20 mg STK-MED ONCE .ROUTE ; Start 04/02/21 at 11:46; Stop 04/02/21 at 11:46; Status DC Propofol (Diprivan) 200 mg STK-MED ONCE IV ; Start 04/02/21 at 11:47; Stop 04/02/21 at 11:47; Status DC Lidocaine HCl (Lidocaine Pf 2% Vial) 5 ml STK-MED ONCE .ROUTE ; Start 04/02/21 at 11:47; Stop 04/02/21 at 11:47; Status DC Dexamethasone Sodium Phosphate (Decadron) 4 mg STK-MED ONCE .ROUTE ; Start 04/02/21 at 11:47; Stop 04/02/21 at 11:47; Status DC Ketorolac Tromethamine (Toradol 30mg Vial) 30 mg STK-MED ONCE .ROUTE ; Start 04/02/21 at 11:47; Stop 04/02/21 at 11:47; Status DC Allergies Allergies: Coded Allergies: No Known Drug Allergies (Unverified , 04/01/21) ROS Gastrointestinal: Yes Nausea, Yes Vomiting, Yes Abdominal Pain Physical Exam General: Alert, Oriented X3, Cooperative, moderate distress HEENT: Atraumatic Abdomen: Soft, Other (TTP RUQ with guarding) Extremities: No clubbing, No cyanosis Skin: No rashes, No breakdown Neuro: Normal speech, Sensation intact Psych/Mental Status: Mental status NL, Mood NL Vitals VITALS Vital Signs Date Time Temp Pulse Resp B/P (MAP) Pulse Ox O2 Delivery O2 Flow Rate FiO2 04/02/21 11:00 99.4 97 18 170/93 (118) 95 Room Air 99.4 Labs Labs Laboratory Tests Test 04/01/21 10:00 04/01/21 10:06 04/01/21 10:10 04/01/21 16:26 Urine Collection Type Unknown Urine Color Yellow Urine Clarity Cloudy Urine pH 6.0 (<5.0-8.0) Urine Specific [place] >=1.030 (1.000-1.030) Urine Protein >=300 mg/dL (NEG-TRACE) Urine Glucose (UA) 100 mg/dL (NEG) Urine Ketones (Stick) Negative mg/dL (NEG) Urine Blood Moderate (NEG) Urine Nitrite Negative (NEG) Urine Bilirubin Negative (NEG) Urine Urobilinogen Dipstick 0.2 mg/dL (0.2 mg/dL) Urine Leukocyte Esterase Negative (NEG) Urine RBC 11-20 /HPF (0-2) Urine WBC 1-4 /HPF (0-4) Urine Squamous Epithelial Cells Mod /LPF Urine Bacteria Few /HPF (0-FEW) Urine Mucus Mod /LPF Bedside Urine HCG, Qualitative Hcg negative (Negative) White Blood Count 12.2 x10^3/uL (4.0-11.0) Red Blood Count 4.44 x10^6/uL (3.50-5.40) Hemoglobin 10.9 g/dL (12.0-15.5) Hematocrit 33.9 % (36.0-47.0) Mean Corpuscular Volume 77 fL (79-100) Mean Corpuscular Hemoglobin 25 pg (25-35) Mean Corpuscular Hemoglobin Concent 32 g/dL (31-37) Red Cell Distribution Width 15.4 % (11.5-14.5) Platelet Count 549 x10^3/uL (140-400) Neutrophils (%) (Auto) 85 % (31-73) Lymphocytes (%) (Auto) 11 % (24-48) Monocytes (%) (Auto) 4 % (0-9) Eosinophils (%) (Auto) 0 % (0-3) Basophils (%) (Auto) 0 % (0-3) Neutrophils # (Auto) 10.4 x10^3/uL (1.8-7.7) Lymphocytes # (Auto) 1.3 x10^3/uL (1.0-4.8) Monocytes # (Auto) 0.4 x10^3/uL (0.0-1.1) Eosinophils # (Auto) 0.0 x10^3/uL (0.0-0.7) Basophils # (Auto) 0.0 x10^3/uL (0.0-0.2) Sodium Level 135 mmol/L (136-145) Potassium Level 3.9 mmol/L (3.5-5.1) Chloride Level 99 mmol/L (98-107) Carbon Dioxide Level 23 mmol/L (21-32) Anion Gap 13 (6-14) Blood Urea Nitrogen 10 mg/dL (7-20) Creatinine 0.6 mg/dL (0.6-1.0) Estimated GFR (Cockcroft-Gault) 113.8 BUN/Creatinine Ratio 17 (6-20) Glucose Level 200 mg/dL (70-99) Calcium Level 8.4 mg/dL (8.5-10.1) Total Bilirubin 0.2 mg/dL (0.2-1.0) Aspartate Amino Transf (AST/SGOT) 6 U/L (15-37) Alanine Aminotransferase (ALT/SGPT) 22 U/L (14-59) Alkaline Phosphatase 97 U/L (46-116) Troponin I High Sensitivity 6 ng/L (4-50) Total Protein 8.3 g/dL (6.4-8.2) Albumin 3.4 g/dL (3.4-5.0) Albumin/Globulin Ratio 0.7 (1.0-1.7) Lipase 39 U/L (73-393) Coronavirus (COVID-19)(PCR) Not detected (NOT DETECTD) SARS-CoV-2 Antigen (Rapid) Negative (NEGATIVE) Test 04/01/21 17:16 04/02/21 06:00 04/02/21 07:55 04/02/21 11:32 Glucose (Fingerstick) 151 mg/dL (70-99) 162 mg/dL (70-99) 140 mg/dL (70-99) White Blood Count 10.5 x10^3/uL (4.0-11.0) Red Blood Count 4.01 x10^6/uL (3.50-5.40) Hemoglobin 9.9 g/dL (12.0-15.5) Hematocrit 30.8 % (36.0-47.0) Mean Corpuscular Volume 77 fL (79-100) Mean Corpuscular Hemoglobin 25 pg (25-35) Mean Corpuscular Hemoglobin Concent 32 g/dL (31-37) Red Cell Distribution Width 15.2 % (11.5-14.5) Platelet Count 490 x10^3/uL (140-400) Neutrophils (%) (Auto) 73 % (31-73) Lymphocytes (%) (Auto) 18 % (24-48) Monocytes (%) (Auto) 8 % (0-9) Eosinophils (%) (Auto) 1 % (0-3) Basophils (%) (Auto) 0 % (0-3) Neutrophils # (Auto) 7.7 x10^3/uL (1.8-7.7) Lymphocytes # (Auto) 1.9 x10^3/uL (1.0-4.8) Monocytes # (Auto) 0.8 x10^3/uL (0.0-1.1) Eosinophils # (Auto) 0.0 x10^3/uL (0.0-0.7) Basophils # (Auto) 0.0 x10^3/uL (0.0-0.2) Sodium Level 137 mmol/L (136-145) Potassium Level 3.6 mmol/L (3.5-5.1) Chloride Level 100 mmol/L (98-107) Carbon Dioxide Level 26 mmol/L (21-32) Anion Gap 11 (6-14) Blood Urea Nitrogen 5 mg/dL (7-20) Creatinine 0.6 mg/dL (0.6-1.0) Estimated GFR (Cockcroft-Gault) 113.8 Glucose Level 173 mg/dL (70-99) Calcium Level 7.9 mg/dL (8.5-10.1) Phosphorus Level 3.0 mg/dL (2.6-4.7) Magnesium Level 2.0 mg/dL (1.8-2.4) Laboratory Tests Test 04/01/21 16:26 04/01/21 17:16 04/02/21 06:00 04/02/21 07:55 Coronavirus (COVID-19)(PCR) Not detected (NOT DETECTD) SARS-CoV-2 Antigen (Rapid) Negative (NEGATIVE) Glucose (Fingerstick) 151 mg/dL (70-99) 162 mg/dL (70-99) White Blood Count 10.5 x10^3/uL (4.0-11.0) Red Blood Count 4.01 x10^6/uL (3.50-5.40) Hemoglobin 9.9 g/dL (12.0-15.5) Hematocrit 30.8 % (36.0-47.0) Mean Corpuscular Volume 77 fL (79-100) Mean Corpuscular Hemoglobin 25 pg (25-35) Mean Corpuscular Hemoglobin Concent 32 g/dL (31-37) Red Cell Distribution Width 15.2 % (11.5-14.5) Platelet Count 490 x10^3/uL (140-400) Neutrophils (%) (Auto) 73 % (31-73) Lymphocytes (%) (Auto) 18 % (24-48) Monocytes (%) (Auto) 8 % (0-9) Eosinophils (%) (Auto) 1 % (0-3) Basophils (%) (Auto) 0 % (0-3) Neutrophils # (Auto) 7.7 x10^3/uL (1.8-7.7) Lymphocytes # (Auto) 1.9 x10^3/uL (1.0-4.8) Monocytes # (Auto) 0.8 x10^3/uL (0.0-1.1) Eosinophils # (Auto) 0.0 x10^3/uL (0.0-0.7) Basophils # (Auto) 0.0 x10^3/uL (0.0-0.2) Sodium Level 137 mmol/L (136-145) Potassium Level 3.6 mmol/L (3.5-5.1) Chloride Level 100 mmol/L (98-107) Carbon Dioxide Level 26 mmol/L (21-32) Anion Gap 11 (6-14) Blood Urea Nitrogen 5 mg/dL (7-20) Creatinine 0.6 mg/dL (0.6-1.0) Estimated GFR (Cockcroft-Gault) 113.8 Glucose Level 173 mg/dL (70-99) Calcium Level 7.9 mg/dL (8.5-10.1) Phosphorus Level 3.0 mg/dL (2.6-4.7) Magnesium Level 2.0 mg/dL (1.8-2.4) Test 04/02/21 11:32 Glucose (Fingerstick) 140 mg/dL (70-99) Images Images US and CT c/w calculous cholecystitis Assessment/Plan Assessment/Plan Calculous cholecystitis TO OR for laparoscopic versus open cholecystectomy with cholangiogram. R/R/B/A d/w pt and pt's family. Risks, including, but not limited to: bleeding, infection, damage to surrounding structures, risk of anesthesia, risk of open. She is at increased risk of complications secondary to morbid obesity. They appear to understand, their questions are answered and they elect to proceed. Thanks for consult! ERIK PEPE MD Apr 02, 2021 12:40
[2021-04-02] MEDS: MORPHINE SULFATE 2 MG/ML INJ. IV PRN ×2 (14:07→21:09)
[2021-04-02 14:28] LABS: HEMOGLOBIN A1C 8.1 % (4.8-5.6)
[2021-04-02] MEDS ORDERED: fentaNYL PF VIAL 100 MCG/2 ML VIAL ONE ×2 (16:08→19:32)
[2021-04-02] MEDS ORDERED: IOHEXOL 300 MG/ML 50 ML VIAL. ONE (16:21)
[2021-04-02] MEDS ORDERED: BUPIVACAINE-EPI 0.5% 30 ML VIAL KIT. ONE (16:21)
[2021-04-02] MEDS ORDERED: SURGICEL HEMOSTAT 4X8 EACH. ONE ×2 (16:22→18:36)
[2021-04-02] MEDS: BISACODYL 10 MG SUPP.RECT. ONE ×2 (18:09→19:03)
[2021-04-02] MEDS ORDERED: IV DEXTROSE 5% 250 ML BAG. IV PRN (19:00)
[2021-04-02] MEDS ORDERED: ONDANSETRON PF 4 MG/2 ML VIAL. IVP PRN (19:00)
[2021-04-02] MEDS ORDERED: 0.9 % SODIUM CHLORIDE 10 ML DISP.SYRIN. IV PRN (19:00)
[2021-04-02] MEDS ORDERED: NALOXONE 0.4 MG/ML VIAL. IV PRN (19:00)
[2021-04-02] MEDS ORDERED: DEXTROSE 50% 25 GM / 50ML DISP.SYRIN. IV PRN (19:00)
--- NOTE | 2021-04-02 19:02 | PDOC4 ---
OPERATIVE NOTE Date: Date: Apr 02, 2021 Pre-Op Diagnosis: Calculous cholecystitis Post-Op Diagnosis: same Procedure Performed: laparoscopic cholecystectomy with cholangiogram Surgeon: Gerardo Pepe Anesthesia Type: GETA plus local Blood Loss: 50 Specimans Obtained: gallbladder Findings: severe obesity, making procedure difficult throughout, fatty liver, also adding to difficulty, adhesions to gallbladder, thickened gallbladder, large stone impacted in neck, normal cholangiogram Complications: none Operative Note: After obtaining informed consent, patient was taken to OR, induced under GETA and prepped in the usual fashion. 5 mm ports placed umbilical, 2 x RUQ, and 12 port placed epigastric, all under laparoscopic guidance. Abdominal cavity was explored and normal except noted as above. Gallbladder grasped and aspirated dark bile. Critical view dissected out. Cystic artery ligated with clips. Cholangiogram obtained via cystic duct and was normal. Gallbladder taken off fossa using cautery. Gallbladder placed in bag, delivered and sent to pathology. Copious irrigation. No evidence of bleeding at time of closure. Surgicel placed in fossa. Ports removed without bleeding. Fascia repaired with 0 vicryl. Skin repaired with 4 0 monocryl. Dressing placed. Patient tolerated procedure well and sent to PACU in stable condition. All counts correct. Wound class is 3. ERIK PEPE MD Apr 02, 2021 19:02
[2021-04-02] MEDS: fentaNYL PF VIAL 100 MCG/2 ML VIAL IVP PRN ×2 (19:36→19:47)
[2021-04-02] MEDS ORDERED: PROCHLORPERAZINE 10 MG/2 ML VIAL. ONE (19:42)
[2021-04-02] MEDS: DOCUSATE SODIUM 100 MG CAPSULE. PO SCH (21:07)
[2021-04-03] VITALS (10 sets, daily range): BP systolic 107–143; BP diastolic 43–93
[2021-04-03] MEDS: PIPERACILLIN/TAZOBACTAM 3.375 GM in IV NORMAL SALINE 50ML 50 ML IV SCH ×4 (00:15→18:00)
[2021-04-03] MEDS: IV RINGERS,LACTATED 1000ML 1,000 ML IV SCH ×3 (00:21→15:00)
[2021-04-03] MEDS: MORPHINE SULFATE 2 MG/ML INJ. IV PRN ×2 (00:31→05:18)
[2021-04-03] MEDS: ONDANSETRON PF 4 MG/2 ML VIAL. IVP PRN (02:27)
--- NOTE | 2021-04-03 02:34 | NUR ---
Pt put director of institutional giving light, when NA went into room pt sitting on side of bed, very pale, sweaty, and c/o being "hot" and "dizzy". Pt was swaying her head back and forth and then fainted. Charge nurse and rapid called.
--- NOTE | 2021-04-03 02:48 | NUR ---
Rapid response Pt here s/p kylee evening 04/02. On arrival to room pt in bed and had eyes open, slow to respond. Color normal for ethnicity. Skin is cool and diaphoretic. BP 113/74. Usual BP's 180/100's. Fluid bolus of 250mls started. Within a few minutes pt was more alert, asking questions, c/o being hot and hungry. BP 144/82. Pt stable, remains on unit.
[2021-04-03] MEDS: IV NORMAL SALINE 1000ML BAG 1,000 ML IV SCH ×3 (05:45→18:15)
[2021-04-03] MEDS: HYDROcodone/APAP 5/325MG 1 TAB TABLET PO PRN ×2 (07:57→12:51)
[2021-04-03] MEDS: ENOXAPARIN 40 MG/0.4 ML SYRINGE. SQ SCH (07:58)
[2021-04-03] MEDS: INSULIN LISPRO 300 UNITS/3 ML VIAL. SQ SCH ×3 (08:00→17:50)
[2021-04-03] MEDS: DOCUSATE SODIUM 100 MG CAPSULE. PO SCH (09:00)
[2021-04-03 09:20] LABS: BASO # 0.1 x10^3/uL (0.0-0.2); BASO % 1 % (0-3); EOS % 0 % (0-3); HEMOGLOBIN 8.7 g/dL (12.0-15.5); LYMPH # 1.9 x10^3/uL (1.0-4.8); LYMPH % 12 % (24-48); MEAN CORPUSCULAR HEMOGLOBIN 25 pg (25-35); MEAN CORPUSCULAR HGB CONC 32 g/dL (31-37); MEAN CORPUSCULAR VOLUME 77 fL (79-100); MONO # 1.2 x10^3/uL (0.0-1.1); MONO % 8 % (0-9); NEUT # 12.3 x10^3/uL (1.8-7.7); NEUT % 79 % (31-73); PLATELET COUNT 589 x10^3/uL (140-400); RED BLOOD COUNT 3.49 x10^6/uL (3.50-5.40); RED CELL DISTRIBUTION WIDTH 15.4 % (11.5-14.5); WHITE BLOOD COUNT 15.5 x10^3/uL (4.0-11.0)
[2021-04-03 09:54] LABS: ALBUMIN 2.7 g/dL (3.4-5.0); CREATININE 0.8 mg/dL (0.6-1.0); DIRECT BILIRUBIN 0.2 mg/dL (0.0-0.2); GFR 81.6; POTASSIUM 3.4 mmol/L (3.5-5.1); TOTAL BILIRUBIN 0.4 mg/dL (0.2-1.0); TOTAL PROTEIN 7.8 g/dL (6.4-8.2)
--- NOTE | 2021-04-03 10:16 | PDOC ---
[employer] PROGRESS NOTE Date of Service DOS: DATE: 04/03/21 TIME: 10:13 Chief Complaint Chief Complaint Acute abdominal pain secondary to acute cholecystitis Microcytic anemia likely due to KEYSHA Mild hyponatremia likely related to volume depletion Hyperglycemia without a history of diabetes History of Present Illness History of Present Illness 04/03/2021 Post-Op Day 1 from kia gonzalese Patient seen and examined at bedside in NAD Patient dressings clean and dry Patient endorses mild RUQ abdominal pain and slight dizziness, but feels ready to discharge to home today Patient had a good appetite this morning and was able to eat breakfast Discussed with RN Nurse says patient woke at 2AM feeling hot/dizzy and then fainted; Rapid response called and patient is now stable Chart Reviewed 04/02/21 Patient seen and examined at bedside, boiler out used Patients BP has been elevated, she currently takes no BP home meds so discussed starting Henrry Will have surgery this afternoon Chart reviewed Discussed w RN Vitals/I&O Vitals/I&O: Vital Signs Date Time Temp Pulse Resp B/P (MAP) Pulse Ox O2 Delivery O2 Flow Rate FiO2 04/03/21 08:13 98.8 119 127/79 (95) 94 8.0 98.8 04/03/21 07:57 Room Air 04/03/21 07:00 20 I & O 04/02/21 04/02/21 04/03/21 15:00 23:00 07:00 Intake Total 1450 ml 350 ml Output Total 650 ml Balance 800 ml 350 ml Physical Exam General: Alert, Oriented X3, Cooperative, moderate distress Abdomen: Soft, Other (TTP RUQ with guarding) Extremities: No clubbing, No cyanosis Skin: No rashes, No breakdown Labs Labs: Laboratory Tests Test 04/02/21 11:32 04/02/21 16:07 04/02/21 21:00 04/03/21 02:15 Glucose (Fingerstick) 140 mg/dL (70-99) 141 mg/dL (70-99) 203 mg/dL (70-99) 255 mg/dL (70-99) Test 04/03/21 07:32 04/03/21 08:55 Glucose (Fingerstick) 173 mg/dL (70-99) White Blood Count 15.5 x10^3/uL (4.0-11.0) Red Blood Count 3.49 x10^6/uL (3.50-5.40) Hemoglobin 8.7 g/dL (12.0-15.5) Hematocrit 27.0 % (36.0-47.0) Mean Corpuscular Volume 77 fL (79-100) Mean Corpuscular Hemoglobin 25 pg (25-35) Mean Corpuscular Hemoglobin Concent 32 g/dL (31-37) Red Cell Distribution Width 15.4 % (11.5-14.5) Platelet Count 589 x10^3/uL (140-400) Neutrophils (%) (Auto) 79 % (31-73) Lymphocytes (%) (Auto) 12 % (24-48) Monocytes (%) (Auto) 8 % (0-9) Eosinophils (%) (Auto) 0 % (0-3) Basophils (%) (Auto) 1 % (0-3) Neutrophils # (Auto) 12.3 x10^3/uL (1.8-7.7) Lymphocytes # (Auto) 1.9 x10^3/uL (1.0-4.8) Monocytes # (Auto) 1.2 x10^3/uL (0.0-1.1) Eosinophils # (Auto) 0.0 x10^3/uL (0.0-0.7) Basophils # (Auto) 0.1 x10^3/uL (0.0-0.2) Sodium Level 136 mmol/L (136-145) Potassium Level 3.4 mmol/L (3.5-5.1) Chloride Level 100 mmol/L (98-107) Carbon Dioxide Level 25 mmol/L (21-32) Anion Gap 11 (6-14) Blood Urea Nitrogen 11 mg/dL (7-20) Creatinine 0.8 mg/dL (0.6-1.0) Estimated GFR (Cockcroft-Gault) 81.6 Glucose Level 196 mg/dL (70-99) Calcium Level 8.0 mg/dL (8.5-10.1) Magnesium Level 2.0 mg/dL (1.8-2.4) Total Bilirubin 0.4 mg/dL (0.2-1.0) Direct Bilirubin 0.2 mg/dL (0.0-0.2) Aspartate Amino Transf (AST/SGOT) 35 U/L (15-37) Alanine Aminotransferase (ALT/SGPT) 37 U/L (14-59) Alkaline Phosphatase 84 U/L (46-116) Total Protein 7.8 g/dL (6.4-8.2) Albumin 2.7 g/dL (3.4-5.0) Assessment and Plan Assessmemt and Plan Problems Medical Problems: (1) Biliary colic Status: Acute (2) Cholelithiasis with cholecystitis Status: Acute Acute abdominal pain secondary to acute cholecystitis Microcytic anemia likely due to KEYSHA Mild hyponatremia likely related to volume depletion Hyperglycemia without a history of diabetes Plan Discharge Comment Review of Relevant I have reviewed the following items ana (where applicable) has been applied. Medications: Current Medications Medications (Trade) Dose Ordered Sig/Live Route PRN Reason Start Time Stop Time Status Last Admin Dose Admin Bupivacaine HCl/ Epinephrine Bitart (Sensorcain-Epi 0.5% Kit) 30 ml STK-MED ONCE .ROUTE 04/02/21 16:21 04/02/21 16:22 DC 04/02/21 17:26 Iohexol (Omnipaque 300 Mg/ml) 50 ml STK-MED ONCE .ROUTE 04/02/21 16:21 04/02/21 16:22 DC 04/02/21 18:09 Cellulose (Surgicel Hemostat 4x8) 1 each STK-MED ONCE .ROUTE 04/02/21 16:22 04/02/21 16:22 DC 04/02/21 18:35 Bisacodyl (Dulcolax Supp) 10 mg STK-MED ONCE .ROUTE 04/02/21 16:22 04/02/21 16:22 DC 04/02/21 19:03 Cellulose (Surgicel Hemostat 4x8) 1 each STK-MED ONCE .ROUTE 04/02/21 18:36 04/02/21 18:36 DC 04/02/21 18:36 Ringer's Solution 1,000 ml @ 100 mls/hr Q10H IV 04/02/21 19:00 04/03/21 00:21 Acetaminophen/ Hydrocodone Bitart (Lortab 5/325) 1 tab PRN Q4HRS PRN PO MILD PAIN 1-3 04/02/21 19:00 04/03/21 07:57 Docusate Sodium (Colace) 100 mg BID PO 04/02/21 21:00 04/02/21 21:07 Justifications for Admission Other Justification Acute cholecystitis ROSA MARSHALL III DO Apr 03, 2021 10:16
--- NOTE | 2021-04-03 11:36 | PDOC ---
SURGICAL PROGRESS NOTE DATE: 04/03/21 TIME: 11:35 Subjective resting sore no nausea Vital Signs Vital Signs Date Time Temp Pulse Resp B/P (MAP) Pulse Ox O2 Delivery O2 Flow Rate FiO2 04/03/21 10:49 98.4 120 20 107/65 (79) 92 98.4 04/03/21 08:27 Room Air 04/03/21 08:13 8.0 I&O Intake and Output 04/03/21 07:00 Intake Total 1800 ml Output Total 650 ml Balance 1150 ml Intake Oral 350 ml IV Total 1450 ml Output Urine Total 200 ml Gastric Drainage Total 400 ml Estimated Blood Loss 50 ml # Voids 5 General: Alert, Oriented X3, Cooperative Abdomen: Soft, Other (dressing dry) Labs Laboratory Tests Test 04/01/21 16:26 04/01/21 17:16 04/01/21 20:48 04/02/21 06:00 Coronavirus (COVID-19)(PCR) Not detected (NOT DETECTD) SARS-CoV-2 Antigen (Rapid) Negative (NEGATIVE) Glucose (Fingerstick) 151 mg/dL (70-99) 149 mg/dL (70-99) White Blood Count 10.5 x10^3/uL (4.0-11.0) Red Blood Count 4.01 x10^6/uL (3.50-5.40) Hemoglobin 9.9 g/dL (12.0-15.5) Hematocrit 30.8 % (36.0-47.0) Mean Corpuscular Volume 77 fL (79-100) Mean Corpuscular Hemoglobin 25 pg (25-35) Mean Corpuscular Hemoglobin Concent 32 g/dL (31-37) Red Cell Distribution Width 15.2 % (11.5-14.5) Platelet Count 490 x10^3/uL (140-400) Neutrophils (%) (Auto) 73 % (31-73) Lymphocytes (%) (Auto) 18 % (24-48) Monocytes (%) (Auto) 8 % (0-9) Eosinophils (%) (Auto) 1 % (0-3) Basophils (%) (Auto) 0 % (0-3) Neutrophils # (Auto) 7.7 x10^3/uL (1.8-7.7) Lymphocytes # (Auto) 1.9 x10^3/uL (1.0-4.8) Monocytes # (Auto) 0.8 x10^3/uL (0.0-1.1) Eosinophils # (Auto) 0.0 x10^3/uL (0.0-0.7) Basophils # (Auto) 0.0 x10^3/uL (0.0-0.2) Sodium Level 137 mmol/L (136-145) Potassium Level 3.6 mmol/L (3.5-5.1) Chloride Level 100 mmol/L (98-107) Carbon Dioxide Level 26 mmol/L (21-32) Anion Gap 11 (6-14) Blood Urea Nitrogen 5 mg/dL (7-20) Creatinine 0.6 mg/dL (0.6-1.0) Estimated GFR (Cockcroft-Gault) 113.8 Glucose Level 173 mg/dL (70-99) Calcium Level 7.9 mg/dL (8.5-10.1) Phosphorus Level 3.0 mg/dL (2.6-4.7) Magnesium Level 2.0 mg/dL (1.8-2.4) Test 04/02/21 07:55 04/02/21 11:32 04/02/21 16:07 04/02/21 21:00 Glucose (Fingerstick) 162 mg/dL (70-99) 140 mg/dL (70-99) 141 mg/dL (70-99) 203 mg/dL (70-99) Test 04/03/21 02:15 04/03/21 07:32 04/03/21 08:55 04/03/21 11:18 Glucose (Fingerstick) 255 mg/dL (70-99) 173 mg/dL (70-99) 237 mg/dL (70-99) White Blood Count 15.5 x10^3/uL (4.0-11.0) Red Blood Count 3.49 x10^6/uL (3.50-5.40) Hemoglobin 8.7 g/dL (12.0-15.5) Hematocrit 27.0 % (36.0-47.0) Mean Corpuscular Volume 77 fL (79-100) Mean Corpuscular Hemoglobin 25 pg (25-35) Mean Corpuscular Hemoglobin Concent 32 g/dL (31-37) Red Cell Distribution Width 15.4 % (11.5-14.5) Platelet Count 589 x10^3/uL (140-400) Neutrophils (%) (Auto) 79 % (31-73) Lymphocytes (%) (Auto) 12 % (24-48) Monocytes (%) (Auto) 8 % (0-9) Eosinophils (%) (Auto) 0 % (0-3) Basophils (%) (Auto) 1 % (0-3) Neutrophils # (Auto) 12.3 x10^3/uL (1.8-7.7) Lymphocytes # (Auto) 1.9 x10^3/uL (1.0-4.8) Monocytes # (Auto) 1.2 x10^3/uL (0.0-1.1) Eosinophils # (Auto) 0.0 x10^3/uL (0.0-0.7) Basophils # (Auto) 0.1 x10^3/uL (0.0-0.2) Sodium Level 136 mmol/L (136-145) Potassium Level 3.4 mmol/L (3.5-5.1) Chloride Level 100 mmol/L (98-107) Carbon Dioxide Level 25 mmol/L (21-32) Anion Gap 11 (6-14) Blood Urea Nitrogen 11 mg/dL (7-20) Creatinine 0.8 mg/dL (0.6-1.0) Estimated GFR (Cockcroft-Gault) 81.6 Glucose Level 196 mg/dL (70-99) Calcium Level 8.0 mg/dL (8.5-10.1) Magnesium Level 2.0 mg/dL (1.8-2.4) Total Bilirubin 0.4 mg/dL (0.2-1.0) Direct Bilirubin 0.2 mg/dL (0.0-0.2) Aspartate Amino Transf (AST/SGOT) 35 U/L (15-37) Alanine Aminotransferase (ALT/SGPT) 37 U/L (14-59) Alkaline Phosphatase 84 U/L (46-116) Total Protein 7.8 g/dL (6.4-8.2) Albumin 2.7 g/dL (3.4-5.0) Laboratory Tests Test 04/02/21 16:07 04/02/21 21:00 04/03/21 02:15 04/03/21 07:32 Glucose (Fingerstick) 141 mg/dL (70-99) 203 mg/dL (70-99) 255 mg/dL (70-99) 173 mg/dL (70-99) Test 04/03/21 08:55 04/03/21 11:18 White Blood Count 15.5 x10^3/uL (4.0-11.0) Red Blood Count 3.49 x10^6/uL (3.50-5.40) Hemoglobin 8.7 g/dL (12.0-15.5) Hematocrit 27.0 % (36.0-47.0) Mean Corpuscular Volume 77 fL (79-100) Mean Corpuscular Hemoglobin 25 pg (25-35) Mean Corpuscular Hemoglobin Concent 32 g/dL (31-37) Red Cell Distribution Width 15.4 % (11.5-14.5) Platelet Count 589 x10^3/uL (140-400) Neutrophils (%) (Auto) 79 % (31-73) Lymphocytes (%) (Auto) 12 % (24-48) Monocytes (%) (Auto) 8 % (0-9) Eosinophils (%) (Auto) 0 % (0-3) Basophils (%) (Auto) 1 % (0-3) Neutrophils # (Auto) 12.3 x10^3/uL (1.8-7.7) Lymphocytes # (Auto) 1.9 x10^3/uL (1.0-4.8) Monocytes # (Auto) 1.2 x10^3/uL (0.0-1.1) Eosinophils # (Auto) 0.0 x10^3/uL (0.0-0.7) Basophils # (Auto) 0.1 x10^3/uL (0.0-0.2) Sodium Level 136 mmol/L (136-145) Potassium Level 3.4 mmol/L (3.5-5.1) Chloride Level 100 mmol/L (98-107) Carbon Dioxide Level 25 mmol/L (21-32) Anion Gap 11 (6-14) Blood Urea Nitrogen 11 mg/dL (7-20) Creatinine 0.8 mg/dL (0.6-1.0) Estimated GFR (Cockcroft-Gault) 81.6 Glucose Level 196 mg/dL (70-99) Calcium Level 8.0 mg/dL (8.5-10.1) Magnesium Level 2.0 mg/dL (1.8-2.4) Total Bilirubin 0.4 mg/dL (0.2-1.0) Direct Bilirubin 0.2 mg/dL (0.0-0.2) Aspartate Amino Transf (AST/SGOT) 35 U/L (15-37) Alanine Aminotransferase (ALT/SGPT) 37 U/L (14-59) Alkaline Phosphatase 84 U/L (46-116) Total Protein 7.8 g/dL (6.4-8.2) Albumin 2.7 g/dL (3.4-5.0) Glucose (Fingerstick) 237 mg/dL (70-99) Problem List Problems Medical Problems: (1) Biliary colic Status: Acute (2) Cholelithiasis with cholecystitis Status: Acute Assessment/Plan s/p kylee some tachycardia, as per [facility] Justicifation of Admission Dx: Justifications for Admission: Justification of Admission Dx: Yes Comments: cholecystitis MYRON STYLES APRN Apr 03, 2021 11:36
[2021-04-03] MEDS ORDERED: IV RINGERS,LACTATED 500ML 500 ML IV ONE (12:30)
--- NOTE | 2021-04-03 12:36 | DS ---
DATE OF DISCHARGE: 04/03/2021 ADMISSION DIAGNOSIS: Symptomatic gallstones. DISCHARGE DIAGNOSIS: Postoperative laparoscopic cholecystectomy. HOSPITAL COURSE: The patient is a pleasant middle-aged female who presented with symptomatic gallstones. She was taken to the OR by Dr. Rocha and underwent laparoscopic cholecystectomy. Today, I saw and examined her. She is at her baseline and wants to go home. We plan to discharge. DISPOSITION: Home. ACTIVITY: As tolerated. DIET: Low sodium. DISCHARGE MEDICATIONS: Please see the MRAD. TOTAL TIME: 32 minutes. MICKEY/GILDARDO DR: Shanelle TID: [id number]
--- NOTE | 2021-04-03 12:55 | RAD ---
INDICATION: Reason: CHOLANGIOGRAMS IN OR WITH C-ARM / Spl. Instructions: / History: . Fluoro for pro cedure. IMPRESSION: Fluoroscopy was utilized by the clinical service to assist with their procedure. There are one saved images/series. The limited saved images show spot image of the upper abdomen with contrast injection of the bile andra ts with contrast seen within the common bile duct as well as the duodenum without evidence of common bile duct obstruction. The amount of fluoroscopy time was not saved on the image. mA is 3.89 and KVP is 109 This dictation is for the usage of fluoroscopy only. Please see the clinical service's procedure note for detail on the procedure. Electronically signed by: Ernesto John MD (04/03/2021 12:52 PM) [id number]
[2021-04-03] MEDS ORDERED: AMLO-187 PO (17:53)
[2021-04-03] MEDS ORDERED: HYDR-2761 PO (17:53)
--- NOTE | 2021-04-04 17:07 | PATHOLOGY ---
[facility] Accession Number: [id number] . 01 Material submitted: . gallbladder - GALLBLADDER WITH CONTENTS . 01 Clinical history: . CALCULUS CHOLECYSTITIS LAPAROSCOPIC CHOLECYSTECTOMY=CHOLANGIOGRAMS . 02 Diagnosis: Gallbladder, laparoscopic cholecystectomy: - Cholelithiasis. - Cholesterolosis. - Acute and chronic cholecystitis. - Steatosis and portal chronic inflammation of attached portion of liver tissue. (JPM:carol; 04/04/2021) MBR 04/04/2021 1016 Local . 02 Comment: There is no evidence of malignancy. (JPM:carol; 04/04/2021) . 02 Electronically signed: . Jose Enrique Robert MD, Pathologist NPI- [id number] . 01 Gross description: . Fixative: Formalin Labeled: Gallbladder with contents Specimen received: A previously opened gallbladder Dimensions: 9.7 x 4.0 x 2.7 cm Serosa: Purple-hooker and smooth to roughened and cauterized Lymph node: Not identified Mucosa: Green-hooker, roughened with mild yellow streaking Average wall thickness: 0.5 cm Calculi: A single yellow-green and granular calculi present measuring 2.5 cm in greatest dimension and lodged within the cystic duct Abnormalities: None identified . A1- Plant Tech body, fundus, and the cystic duct margin. A2- Additional customer success representative section of body and fundus ([facility]; 04/03/2021) NRI/NRI 04/03/2021 2157 Local . 02 Pathologist provided ICD-10: K80.12, K82.4 . 02 CPT . 105036 Specimen Comment: A courtesy copy of this report has been sent to [phone], [phone] Specimen Comment: [id number] Specimen Comment: Report sent to / DR TEIXEIRA Specimen Comment: A duplicate report has been generated due to demographic updates. Performed at: 01 [facility] [address] [facility] [address], [place] [id number] MD Kennedy Gongora MD Phone: [phone] Performed at: 02 [facility] [address] [place] [id number] MD Jose Enrique Robert MD Phone: [phone]
== END 2021-04-03 18:42 | disposition home or self-care (01) | DRG 418 ==
LOC: ER 09:38 → 4 NORTH 12:08
PROVIDERS: ADMIT Internal Medicine; ATTEND Internal Medicine
PROC: BF121ZZ Fluoroscopy of Gallbladder using Low Osmolar Contrast (ICD-10-PCS; 2021-04-02)
PROC: 0FT44ZZ Resection of Gallbladder, Percutaneous Endoscopic Approach (ICD-10-PCS; principal; 2021-04-02 15:50)
DX: K80.00 Calculus of gallbladder with acute cholecystitis without obstruction (principal); E87.1 Hypo-osmolality and hyponatremia; K82.1 Hydrops of gallbladder; Z68.42 Body mass index [BMI] 45.0-49.9, adult; D50.9 Iron deficiency anemia, unspecified; E66.01 Morbid (severe) obesity due to excess calories; E86.9 Volume depletion, unspecified; K42.9 Umbilical hernia without obstruction or gangrene; K76.0 Fatty (change of) liver, not elsewhere classified; Z20.822 Contact with and (suspected) exposure to COVID-19; R16.0 Hepatomegaly, not elsewhere classified; R73.9 Hyperglycemia, unspecified
CPT/HCPCS: 36415; 74176; 74300; 76705; 80048; 80053; 80076; 81001; 81025; 82962; 83036; 83690; 83735; 84100; 84484; 85025; 87426; 96374; A4209; A4213; A4314; A4930; C1887; J0500; J0780; J1100; J1200; J1644; J1650; J1815; J1885; J2270; J2405; J2543; J2704; J2710; J3010; J3490; J7030; J7120; Q9967; U0003; 99285-25; G0378